=== PATIENT | female | born 1955 | race Caucasian/White ===

== ENCOUNTER 2020-11-29 12:54 | Emergency (ER) | payer MEDICARE, OTHER ==
--- NOTE | 2020-11-29 13:47 | CT ---
Head CT without contrast: 11/29/2020 COMPARISON: None HISTORY: Headache, syncope TECHNIQUE: Axial CT imaging at 3.75 mm intervals from vertex through skull base without contrast. Cor onal and sagittal reformatted imaging obtained. FINDINGS: The visualized paranasal sinuses/mastoid air cells demonstrate mild mucosal thickening invo lving the alveolar recess of the left maxillary sinus. No displaced calvarial fracture. No intracranial hemorrhage, midline shift, mass effect, or ventricul ar enlargement. IMPRESSION: No acute findings.
[2020-11-29 13:54] LABS: Hemoglobin 13.6 g/dL (12.0-16.0); Mean Corpuscular Hemoglobin 33.1 pg (27.0-31.0); Mean Platelet Volume 7.8 fL (7.4-10.4); Platelet Count 74 thou/uL (130-400); RBC Distribution Width 10.2 % (11.5-14.5); Red Blood Cell (RBC) Count 4.11 mill/uL (4.20-5.40); White Blood Cell (WBC) Count 4.6 thou/uL (4.8-10.8)
[2020-11-29 14:03] LABS: INR-International Normal Ratio 1.1; PTT 33.9 sec (22.9-36.1)
[2020-11-29 14:09] LABS: Band 4 % (5-11); Eosinophils 5 % (0-10); Lymphocytes 13 % (21-51); MDiff Complete? YES; Monocytes 23 % (0-10); Neutrophil 53 % (42-75); Platelet Morphology Comment Appears Decreased; Reactive Lymphocytes 1 % (0-10); Reflex for Review?? NO; Toxic Granulation SLIGHT; Vacuoles SLIGHT
[2020-11-29 14:11] LABS: ALT (SGPT) 33 U/L (8-55); AST (SGOT) 46 U/L (5-34); Albumin 3.6 g/dL (3.4-4.8); Alkaline Phosphatase 142 U/L (40-110); Anion Gap 16 mmol/L (10-20); BUN (Urea Nitrogen) 25 mg/dL (9.8-20.1); Bilirubin, Total 1.3 mg/dL (0.2-1.2); Calc. Creatinine Clearance 0 mL/min (70-130); Calcium 9.2 mg/dL (7.8-10.44); Carbon Dioxide 22 mmol/L (23-31); Chloride 102 mmol/L (98-107); Globulin 3.2 g/dL (2.4-3.5); Glucose 266 mg/dL (80-115); Potassium 4.1 mmol/L (3.5-5.1); Protein, Total 6.8 g/dL (6.0-8.3); Sodium 136 mmol/L (136-145)
== END 2020-11-29 14:45 | disposition home or self-care (01) ==
LOC: MADERS 12:54
DX: R51.9 Headache, unspecified (principal); R55 Syncope and collapse; R01.1 Cardiac murmur, unspecified; E11.9 Type 2 diabetes mellitus without complications; Z79.899 Other long term (current) drug therapy; Z79.84 Long term (current) use of oral hypoglycemic drugs
CPT/HCPCS: 36415; 70450; 80053; 84484; 85025; 85610; 85730; 93005

== ENCOUNTER 2021-08-16 14:57 | Emergency (ER) | payer MEDICARE, OTHER ==
[2021-08-16] MEDS ORDERED: Dexamethasone 4 MG TAB ONE (17:49)
[2021-08-16] MEDS ORDERED: HYDROcodone/Acetaminophen 5/325 mg Tablet ONE (17:49)
[2021-08-16] MEDS ORDERED: Ketorolac Tromethamine 30 MG/ML VIAL ONE (17:49)
[2021-08-16] MEDS ORDERED: Cyclobenzaprine 10 MG TAB ONE (17:49)
== END 2021-08-16 18:00 | disposition home or self-care (01) ==
LOC: MADERS 14:57
DX: M79.18 Myalgia, other site (principal); E11.9 Type 2 diabetes mellitus without complications; Z79.899 Other long term (current) drug therapy; Z79.84 Long term (current) use of oral hypoglycemic drugs
CPT/HCPCS: 96372; 99283; J1885; J8540